=== PATIENT | male | born 1945 | race Caucasian/White ===

== ENCOUNTER → 2017-04-18 | Emergency (ER) | payer OTHER ==
[~2017-04-18] VITALS: Ht 175.3 cm; Wt 89.8 kg
== END | disposition home or self-care (01) ==
LOC: ER 16:12
DX: B34.9 Viral infection, unspecified (principal)

== ENCOUNTER 2022-03-25 08:38 | Outpatient (CLI) | payer OTHER | END 2022-03-25 08:52 | disposition home or self-care (01) | LOC: TOM 08:38 | PROVIDERS: ATTEND Internal Medicine | DX: Z12.11 Encounter for screening for malignant neoplasm of colon (principal); K56.609 Unspecified intestinal obstruction, unspecified as to partial versus complete obstruction ==

== ENCOUNTER 2024-03-10 15:29 | Outpatient (CLI) | payer OTHER | END 2024-03-10 15:39 | disposition home or self-care (01) | LOC: RAD 15:29 | PROVIDERS: ATTEND Orthopaedic Surgery Sports Medicine | DX: M25.522 Pain in left elbow (principal) ==